=== PATIENT | female | born 1985 | race African-American/Black ===

== ENCOUNTER 2018-06-12 13:45 | Emergency (ER) | payer BC, OTHER ==
[~2018-06-12] VITALS: Ht 175.3 cm; Wt 114.3 kg
[~2018-06-12 13:45] MED LIST: BENTYL 10 MG CA10 M1 PO; ZOFRAN ODT4 MG PO
[2018-06-12 14:10] LABS: URINE BILIRUBIN NEGATIVE (Negative); URINE BLOOD 3+ (Negative); URINE CLARITY CLEAR; URINE COLOR YELLOW; URINE GLUCOSE-RANDOM* NEGATIVE (Negative); URINE KETONES TRACE (Negative); URINE LEUKOCYTES-REFLEX NEGATIVE (Negative); URINE NITRITE-REFLEX NEGATIVE (Negative); URINE PROTEIN (DIPSTICK) NEGATIVE (Negative); URINE SPECIFIC GRAVITY >= 1.030 (1.005-1.035); URINE UROBILINOGEN 0.2 E.U./dl (0.2-1.0)
[2018-06-12 14:18] LABS: ABSOLUTE NEUTROPHILS 9.3 thou/uL (1.4-8.2); BASOPHILS 0.5 % (0.0-2.0); EOSINOPHILS 0.3 % (0.0-3.0); HEMATOCRIT 39.2 % (37.0-47.0); HEMOGLOBIN 13.5 gm/dL (12.0-15.0); LYMPHOCYTES 9.4 % (24.0-44.0); MCHC 34.4 g/dL (28.0-37.0); MCV 78.5 fL (80.0-100.0); MONOCYTES 1.6 % (1.0-8.0); PLATELET COUNT 295 thou/uL (150-400); POLYS 88.2 % (36.0-66.0); RBC 4.99 mil/uL (4.20-5.00); RDW 15.2 % (10.5-14.5); WBC 10.6 thou/uL (4.0-11.0)
[2018-06-12 14:20] LABS: BACTERIA-REFLEX None Seen /HPF (None Seen); CASTS None Seen /LPF (None Seen); CRYSTALS None Seen /LPF (None Seen); SQUAMOUS 0-3 Few /LPF (0-3); URINE RBC 3-10 Few /HPF (0-2)
[2018-06-12 14:25] LABS: CALCIUM 9.3 mg/dL (8.5-10.1); CREATININE 0.9 mg/dL (0.6-1.0); POTASSIUM 3.7 mmol/L (3.5-5.1)
[2018-06-12 14:31] LABS: ALBUMIN 3.7 g/dL (3.4-5.0); TOTAL BILIRUBIN 0.5 mg/dL (<0.1-1.0); TOTAL PROTEIN 7.9 g/dL (6.4-8.2)
--- NOTE | 2018-06-12 16:45 | EKG ---
[place] [address] [address] [facility] [facility] [place] [address] ELECTROCARDIOGRAM REPORT Name: SALINAS CHAPMAN [id number] ������������������ Admission: 06/12/18 ������������������ Attend Phys: Discharge: ������������������ Date of : 83 Report #: [id number] ����������������������������������������������������������������� [id number] THIS REPORT FOR: //name// [facility] ED Test Date: 2018-06-12 Test Time: 14:28:24 Pat Name: SALINAS CHAPMAN Department: Room: Gender: F Engine Assembler: ZACH : 1985 Requested By: Rajesh Rubin Order Number: [id number] MD: Lj Pa Measurements Intervals [place] Rate: 104 P: 59 IN: 146 QRS: -16 QRSD: 92 T: 19 QT: 338 QTc: 445 Interpretive Statements Sinus tachycardia Borderline left axis deviation No previous ECG available for comparison Electronically Signed On 06-12-2018 16:44:57 CDT by Lj Pa [email or web address] ��������������������������������������������� <ELECTRONICALLY SIGNED> ���������������������������������������� By: Lj Pa MD ��������������������������������������������� 06/12/18 1644 1428 1428 Lj Pa MD /EPI
[2018-06-12] MEDS ORDERED: KEFLEX500 M1 PO (16:59)
[2018-06-12] MEDS ORDERED: NORCO 10-325 T1 EACH PO (16:59)
[2018-06-12 17:16] VITALS: BP 134/74
== END 2018-06-12 17:17 | disposition home or self-care (01) ==
LOC: ER 13:45
PROVIDERS: Physician Assistant
DX: N39.0 Urinary tract infection, site not specified (principal); R06.02 Shortness of breath